=== PATIENT | female | born 1960 ===

== ENCOUNTER 2025-02-12 09:36 | Outpatient (AMB) | payer BC, SELFPAY ==
--- OUTSIDE RECORDS SUMMARY | 2025-02-12 10:14 | XMS_ITS | Clinical Summary ---
Author Organization [facility] Address [address] [place] [address] Phone Care Team Providers Care Medical Doctor Nuclear Medicine Name Role Phone Kal Alston NP Primary Care Provider [phone] Encounters Date Type Department Care Team Description 12/18/2024 7:23 AM EDT - 12/18/2024 11:59 PM EDT [facility] [address] [id number] Encounter for screening mammogram for malignant neoplasm of breast Discharge Disposition: Home or Self Care from Last 3 Months Social History Tobacco Use Types Packs/Day Years Used Date Smoking Tobacco: Never Assessed Comments No Sex and Gender Information Value Date Recorded Sex Assigned at Female 12/21/2024 10:51 AM EDT Legal Sex Female 7:02 PM EST Gender Identity Female 12/21/2024 10:51 AM EDT Sexual Orientation Straight 12/21/2024 10 :51 AM EDT Obstetrics History Last Filed Vital Signs Vital Sign Reading Time Taken Comments Blood Pressure - - Pulse - - Temperature - - Respiratory Rate - - Oxygen Saturation - - Inhaled Oxygen Concentration - - Weight 66.2 kg (146 lb) 12/18/2024 7:31 AM EDT Height 165.1 cm (5' 5 ) 12/18/2024 7:31 AM EDT Body Mass Index 24.3 12/18/2024 7:31 AM EDT Plan of Treatment Health Maintenance Due Date Last Done Comments Cervical Cancer Screening: Pap Smear 1982 Pneumococcal Vaccine: 50+ Years (1 of 1 - PCV) 12/18/2011 Cholesterol Screening (Lipid Panel) 05/21/2022 Colorectal Cancer Screening: Colonoscopy 05/21/2022 HIV Screening 05/21/2022 Hepatitis C Screening 05/21/2022 Social Influencers of Health Screening 05/21/2022 Depression Screening 06/19/2024 Hypertension/CHF/CAD Annual BMP Blood Test 12/19/2024 Influenza Vaccine (#1) 2025 , 03/30/2023, 04/08/2022, Additional history exists Breast Cancer Screening 12/18/2026 12/19/19, 10/16/2023, 10/11/2022, Additional history exists DTaP,Tdap,and Td Vaccines (3 - Td or Tdap) 09/02/2027 09/01/2017, 04/14/2017 Osteoporosis Screening (Bone Density Screening) 10/09/2031 10/08/2021 Zoster Vaccines Completed 11/04/2020, 08/03/2020 RSV Immunization Adult Patients Completed 03/31/2023 COVID-19 Vaccine Completed 04/01/2024, , 01/07/2022, Additional history exists HIB Vaccines Aged Out No longer eligi ble based on patient's age to complete this topic HPV Vaccines Aged Out No longer eligi ble based on patient's age to complete this topic Hepatitis A Vaccines Aged Out No long er eligible based on patient's age to complete this topic Hepatitis B Vaccines Aged Out No long er eligible based on patient's age to complete this topic IPV Vaccines Aged Out No longer eligi ble based on patient's age to complete this topic MMR Vaccines Aged Out No longer eligi ble based on patient's age to complete this topic Meningococcal ACWY Vaccine Aged Out N o longer eligible based on patient's age to complete this topic Meningococcal B Vaccine Aged Out No l onger eligible based on patient's age to complete this topic RSV Immunization Patients Under 20 months Aged Out No longer eligible based on patient's age to complete this topic Varicella Vaccines Aged Out No longer eligible based on patient's age to complete this topic Procedures Procedure Name Priority Date/Time Associated Diagnosis Comments MG MAMMO DIGITAL SCREENING W MISAEL BILAT Routine 12/18/2024 7:43 AM EDT Encounter for screening mammogram for malignant neoplasm of breast RAJI DEXA AXIAL SKELETON Routine 10/08/2021 11:28 AM EDT Encounter for screening for osteoporosis from Last 3 Months or Most Recently Relevant to Health Maintenance Results * MG Mammo Digital Screening w Misael bilat (12/18/2024 7:43 AM EDT) Anatomical Region Laterality Modality Breast Bilateral Mammography 12/18/2024 10:0 3 AM EDT Impressions 12/18/2024 10:19 AM EDT No suspicious change in a focal asymmetry and associated biopsy site marker. No suspicious interval change. Close mammographic surveillance necessary since there was no specific pathologic diagnosis for the suspicious mammogram finding. ASSESSMENT: BI-RADS 2: BENIGN RECOMMENDATION(S): 1: Routine screening mammogram BILATERAL in 1 year. [facility] location[facility] [address], [address] -------- FINAL REPORT -------- Dictated By: Fan Santiago Dictated Date: 12/18/2024 10:03 ET Assigned Physician: Fan Santiago Reviewed and Electronically Signed By: Fan Santiago Signed Date: 12/18/2024 10:19 ET Workstation ID: [id number] Transcribed By: Self Edit Transcribed Date: 12/18/2024 10:03 ET Narrative 12/18/2024 10:19 AM EDT EXAM: SCREENING MAMMOGRAPHY, BILATERAL HISTORY: SCREENING. No additional history. COMPARISON: 10/16/23, 10/11/22, 10/08/21, 10/06/20 TECHNIQUE: Synthesized CC and MLO projections of each breast. Tomosynthesis of each breast in the CC and MLO projections. ADDITIONAL IMAGING: None Computer-aided detection was employed with the iCAD [employer] AI 3-D. TISSUE DENSITY: The breasts are heterogeneously dense, which may obscure small masses. (BI-RADS category C) FINDINGS: RIGHT BREAST: There is an approximately 0.8 cm irregular focal asymmetry within associated biopsy site marker in the 10 o'clock position 7 cm from the nipple. No convincing suspicious interval change. The final pathology result was benign breast tissue. No new suspicious right breast finding LEFT BREAST: No suspicious mass. No suspicious calcification. No distortion. No additional suspicious left breast findings Procedure Note Fan Santiago MD - 12/18/2024 EXAM: SCREENING MAMMOGRAPHY, BILATERAL HISTORY: SCREENING. No additional history. COMPARISON: 10/16/23, 10/11/22, 10/08/21, 10/06/20 TECHNIQUE: Synthesized CC and MLO projections of each breast.Tomosynthesis of each breast in the CC and MLO projections. ADDITIONAL IMAGING: None Computer-aided detection was employed with the iCAD [employer] AI 3-D. TISSUE DENSITY: The breasts are heterogeneously dense, which may obscuresmall masses. (BI-RADS category C) FINDINGS: RIGHT BREAST: There is an approximately 0.8 cm irregular focal asymmetry withinassociated biopsy site marker in the 10 o'clock position 7 cm from thenipple. No convincing suspicious interval change. The final pathologyresult was benign breast tissue. No new suspicious right breast finding LEFT BREAST: No suspicious mass. No suspicious calcification. No distortion. Noadditional suspicious left breast findings IMPRESSION: No suspicious change in a focal asymmetry and associated biopsy sitemarker. No suspicious interval change. Close mammographic surveillance necessary since there was no specificpathologic diagnosis for the suspicious mammogram finding. ASSESSMENT: BI-RADS 2: BENIGN RECOMMENDATION(S): 1: Routine screening mammogram BILATERAL in 1 year. [facility] location[facility] [address], [address] -------- FINAL REPORT -------- Dictated By: Fan Santiago Dictated Date: 12/18/2024 10:03 ET Assigned Physician: Fan Santiago Reviewed and Electronically Signed By: Fan Santiago Signed Date: 12/18/2024 10:19 ET Workstation ID: [id number] Transcribed By: Self Edit Transcribed Date: 12/18/2024 10:03 ET Radha OLMSTEAD IMG BI PROCEDURES Final Result * RAJI DEXA AXIAL SKELETON (10/08/2021 11:28 AM EDT) Anatomical Region Laterality Modality Mammography 10/08/2021 8:14 AM EDT Narrative 10/08/2021 11:28 AM EDT [facility] Diagnostic Imaging Department [address] [place] [address] Patient: KODI RODGERS Paty Farfan./Age/Sex: 1960 - 60 - F Unit#: [id number] Location/Status: SPDIMA/REG CLI [facility] Ordering Physician: LIV GO CNM Raji Dexa Axial Skeleton - 10/08/21904 HISTORY: The patient is a 60-year-old postmenopausal female with clinical concern for metabolic bone disease. FINDINGS: Dual energy x-ray absorptiometry of the lumbar spine and femurs is performed. The mean bone mineral density at L1-3 is 0.852 gm/cm2 which is 73% of that of young normals and 84% of that of age matched controls. This yields a T- score of -2.6 and a Z-score of -1.3 which is diagnostic of osteoporosis. The mean bone mineral density of the femurs bilaterally is 0.819 gm/cm2 which is 81% of that of young normals and 93% of that of age matched controls. This yields a T-score of -1.5 and a Z-score of -0.5 which is diagnostic of osteopenia. IMPRESSION: 1. Osteoporosis. 2. FRAX analysis yields a 10-year probability of major osteoporotic fracture of 8.4% and a 10-year probability of hip fracture of 1.0%. Code 82327 Dictating Physician: QUINCY SIDHU MD Electronically Signed by: QUINCY SIDHU MD Dic Date/Time: 10/08/21 1127 Sign date/Time: 10/08/21 1128 Procedure Note Quincy Sidhu MD - 06/08/2022 [facility] Diagnostic Imaging Department [address] [place] [address] Patient: KODI RODGERS Paty Farfan./Age/Sex: 1960 - 60 - F Unit#: [id number] [facility] Mnemonic/Ordering Site: [facility] Ordering Physician: LIV GO CNM [facility] Dexa Axial Skeleton - 10/08/21 - 09 HISTORY: The patient is a 60-year-old postmenopausal female withclinical concern for metabolic bone disease. FINDINGS: Dual energy x-ray absorptiometry of the lumbar spine and femursis performed. The mean bone mineral density at L1-3 is 0.852 gm/cm2 which is73% of that of young normals and 84% of that of age matched controls. This yieldsa T- score of -2.6 and a Z-score of -1.3 which is diagnostic of osteoporosis. The mean bone mineral density of the femurs bilaterally is 0.819 gm/sk7gojyp is 81% of that of young normals and 93% of that of age matched controls.This yields a T-score of -1.5 and a Z-score of -0.5 which is diagnostic of osteopenia. IMPRESSION: 1. Osteoporosis. 2. FRAX analysis yields a 10-year probability of major osteoporoticfracture of 8.4% and a 10-year probability of hip fracture of 1.0%. Code 25174 Dictating Physician: QUINCY SIDHU MD Electronically Signed by: QUINCY SIDHU MD Dic Date/Time: 10/08/21 1127 Sign date/Time: 10/08/21 1128 Liv Go [facility] IM BI PROCEDURES Final Result from Last 3 Months or Most Recently Relevant to Health Maintenance Insurance [facility] Care Teams Medical Doctor Nuclear Medicine Relationship Specialty Start Date End Date Kal Alston NP [facility] [place] [facility] [place] PCP - General Nurse Practitioner 12/10/24
--- OUTSIDE RECORDS SUMMARY | 2025-02-12 10:14 | XMS_ITS | Patient Health Record ---
[facility] David porras [place] Address [address] [place] [address] Care Team Providers Care Laundry Helper Name Role Phone KirillKal andrews Primary Care Provider Unavailbravo e Vinnie Carlin Unavailable [phone] Allergies Allergen (clinical drug ingredient) Drug/Non Drug Allergy documented on EMR Reaction Allergy Type Onset Date Status Dust Mites Unknown Allergy Active Mold Unknown Allergy Active Reason For Referral Diagnosis 1 Metatarsalgia (726.7 0) Diagnosis 2 Bursitis (727.3) Diagnosis 3 Plantarflexed Metata rsal (838.04) Diagnosis 4 Pain in unspecified foot (M79.673) Referring Provider First Name Jovi Referring Provider Last Name [place] [facility] Referred Provider Vinnie Carlin Referred Address [address] [facility],[place],[address], Referred Provider Specialty Podiatry Referral Priority Routine Medications Medication SIG (Take, Route, Frequency, Duration) Notes Start Date End Date Status Reclast 5 MG/100ML as directed Intravenous Not-Taking Ibuprofen 600 MG 1 tablet with food o r milk as needed Orally Three times a day Not-Taking Fluticasone Propionate 50 MCG/ACT Nasal; Duration: 30 Active Diclofenac Sodium 75 MG TAKE 1 TABLET BY MOUTH TWICE DAILY WITH FOOD; Duration: 30 Active Losartan Potassium 25 MG 1 tablet Orally Once a day Active Womens 50+ Advanced Orally 10/25/2013 Active PreviDent 5000 Booster Plus 1.1 % Dental; Duration: 20 Active Mometasone Furoate 1 application to affected area Externally Once a day; Duration: as needed Unknown D3-1000 1000 UNIT 1 capsule Orally Onc e a day 10/25/2013 Not-Taking Omeprazole 20 MG 1 capsule Orally Onc e a day 10/25/2013 Active Levothyroxine Sodium 88 MCG Oral; Duration: 30 Active Social History Tobacco Use: Social History Observation Description Date Details (start date - stop date) Never Smoker NA - NA Tobacco Control (Standard) Question Answer Notes Tobacco use: Nonsmoker Additional Findings: Tobacco non-user Ex-cigaret te smoker AUDIT-C (Standard) Question Answer Notes Did you have a drink contain ing alcohol in the past year? Yes How often did you have a dri nk containing alcohol in the past year? 2 to 4 times a month (2 points) How many drinks did you have on a typical day when you were drinking in the past year? 1 or 2 drinks (0 point) How often did you have six o r more drinks on one occasion in the past year? Never (0 point) Points 2 Interpretation Negative Vital Signs Blood pressure diastolic 76 mm Hg 07/18/2024 Height 5ft 5 in in 07/18/2024 Blood pressure systolic 138 mm Hg 07/18/2024 Weight 140 lbs 07/18/2024 BMI 23.29 kg/m2 07/18/2024 Procedures Procedure Date Ordered Date Performed Result Body Sit e , E9687-DWRII/INJECT, JOINT/BURSA 07/18/2024 N/A Encounters Encounter Location Date Provider Diagnosis [address] [address] 06/20/2024 Vinnie Carlin Pain in left foot M7 9.672 and Bursitis of intermetatarsal bursa of left foot M77.[address] [place] [facility] [address] 07/18/2024 Vinnie Carlin Pain in left foot M7 9.672 and Bursitis of intermetatarsal bursa of left foot M77.52 Assessments Encounter Date Diagnosis (ICD Code) Assessment Notes Treatment Notes Treatment Clinical Notes Section Notes 06/20/2024 Pain in left foot (ICD-10 - M79.672) 06/20/2024 Bursitis of intermetatarsal bursa of left foot (ICD-10 - M77.52) 07/18/2024 Pain in left foot (ICD-10 - M79.672) 07/18/2024 Bursitis of intermetatarsal bursa of left foot (ICD-10 - M77.52) Plan Of Treatment Pending Test Test Name Order Date X ray : Foot, left 3V 06/20/2024, G2966-KUSEV/INJECT, JOINT/BURSA 0 07/18/2024, Q5655-GCOLT/INJECT, JOINT/BURSA 0 02/20/2014, F3902-JTPXM/INJECT, JOINT/BURSA 0 03/17/2014 Insurance Providers Payer Name Payer Address Payer Phone Subscriber Number Group Number Insured Name Patient Relationship to Insured Coverage Start Date Coverage End Date [facility] [address] [place] [address] [id number] 4 Yuli Rodgers Self - patient is the insured [facility] [address] [place] [address] [id number] 4 Yuli Rodgers Self - patient is the insured Medical (General) History Medical History History ICD Code Back,Hip,and Knee pain basal cell carcinoma Cataracts Headaches/Migraines Reflux Sciatica chronic sinusitis Thyroid disorder Mumps Arthritis Cancer covid-19 Diverticulitis High Blood Pressure Osteoporosis Psoriasis/eczema Reflux ( GERD)
== END 2025-02-12 09:43 | disposition home or self-care (01) ==
LOC: HO.HMGAL 09:36
PROVIDERS: PCP Internal Medicine; Visit Provider Registered Nurse Emergency
DX: J30.89 Other allergic rhinitis (principal)
CPT/HCPCS: 95117; 95165

== ENCOUNTER 2025-03-12 13:30 | Outpatient (AMB) | payer BC, SELFPAY ==
--- OUTSIDE RECORDS SUMMARY | 2025-03-12 15:57 | XMS_ITS | Patient Health Record ---
Author Organization [facility] David porras [place] Address [address] [place] [address] Care Team Providers Care Sports Medicine Specialist Name Role Phone KirillKal andrews Primary Care Provider Unavailbravo e Vinnie Carlin Unavailable [phone] Allergies Allergen (clinical drug ingredient) Drug/Non Drug Allergy documented on EMR Reaction Allergy Type Onset Date Status Dust Mites Unknown Allergy Active Mold Unknown Allergy Active Reason For Referral Diagnosis 1 Metatarsalgia (726.7 0) Diagnosis 2 Bursitis (727.3) Diagnosis 3 Plantarflexed Metata rsal (838.04) Diagnosis 4 Pain in unspecified foot (M79.673) Referring Provider First Name Jovi Referring Provider Last Name [place] [facility] Miah Referred Provider Vinnie Carlin Referred Address [address] [facility],[place],[address], Referred Provider Specialty Podiatry Referral Priority Routine [...] Date Performed Result Body Sit e , V2933-PGFTN/INJECT, JOINT/BURSA 07/18/2024 N/A Encounters Encounter Location Date Provider Diagnosis [address] [address] 06/20/2024 Vinnie Carlin Pain in left foot M7 9.672 and Bursitis of intermetatarsal bursa of left foot M77.52 [place] [facility] [address] 07/18/2024 Vinnie Carlin Pain in left foot [...] X ray : Foot, left 3V 06/20/2024, R8500-VAHEW/INJECT, JOINT/BURSA 0 07/18/2024, Z4143-IXVWF/INJECT, JOINT/BURSA 0 02/20/2014, S9327-NLLMS/INJECT, JOINT/BURSA 0 03/17/2014 Insurance Providers Payer Name Payer Address Payer Phone Subscriber Number Group Number Insured Name Patient Relationship to Insured Coverage Start Date Coverage End Date [facility] [address] [place] [address] [phone] [id number] 4 Yuli Rodgers Self - patient is the insured [facility] [address] [place] [address] [phone] [id number] 4 Yuli Rodgers Self - patient is the insured Medical (General) History Medical History History ICD Code Back,Hip,and Knee pain basal cell carcinoma Cataracts Headaches/Migraines Reflux Sciatica chronic sinusitis Thyroid disorder Mumps Arthritis Cancer covid-19 Diverticulitis High Blood Pressure Osteoporosis Psoriasis/eczema Reflux ( GERD)
== END 2025-03-12 13:31 | disposition home or self-care (01) ==
LOC: HO.HMGAL 13:30
PROVIDERS: PCP Internal Medicine; Visit Provider Registered Nurse Emergency
DX: J30.89 Other allergic rhinitis (principal)
CPT/HCPCS: 95117; 95165

== ENCOUNTER 2025-04-09 15:17 | Outpatient (AMB) | payer BC, SELFPAY ==
--- OUTSIDE RECORDS SUMMARY | 2025-04-09 21:30 | XMS_ITS | Clinical Summary ---
Author Organization [facility] Address [address] [place] [address] Phone Care Team Providers Care Steam Oven Operator Name Role Phone Kal Alston NP Primary Care Provider [phone] Social History Tobacco Use Types Packs/Day Years [...] Health Maintenance Due Date Last Done Comments Colorectal Cancer Screening: Colonoscopy 1960 Cervical Cancer Screening: Pap Smear 1982 Pneumococcal Vaccine: 50+ Years (1 of 1 - PCV) 12/18/2011 Cholesterol Screening (Lipid Panel) 05/21/2022 HIV Screening 05/21/2022 Hepatitis C Screening [...] screening mammogram for malignant neoplasm of breast [facility] DEXA AXIAL SKELETON Routine 10/08/2021 11:28 AM [...] year. [facility] [address], [address] -------- FINAL REPORT -------- Dictated By: Fan Santiago Dictated Date: 12/18/2024 10:03 ET Assigned Physician: Fan Santiago Reviewed and Electronically Signed By: Fan Santiago Signed Date: 12/18/2024 10:19 ET Workstation ID: [id number] Transcribed By: Self Edit Transcribed Date: 12/18/2024 10:03 ET Narrative 12/18/2024 10:19 AM EDT EXAM: SCREENING MAMMOGRAPHY, BILATERAL HISTORY: SCREENING. No additional history. COMPARISON: 10/16/23, 10/11/22, 10/08/21, 10/06/20 TECHNIQUE: Synthesized CC and MLO projections of each breast. Tomosynthesis of each breast in the CC and MLO projections. ADDITIONAL IMAGING: None Computer-aided detection was employed with the iCAD [employer] AI 3-D. TISSUE DENSITY: The breasts are [...] Computer-aided detection was employed with the [employer] AI 3-D. TISSUE DENSITY: The breasts are [...] year. [facility]amm[facility] [address] [place], [address] -------- FINAL REPORT -------- Dictated By: Fan Santiago Dictated Date: 12/18/2024 10:03 ET Assigned Physician: Fan Santiago Reviewed and Electronically Signed By: Fan Santiago Signed Date: 12/18/2024 10:19 ET Workstation ID: [id number] Transcribed By: Self Edit Transcribed Date: 12/18/2024 10:03 ET us Radha OLMSTEAD IMG BI PROCEDURES Final Result * RAJI DEXA AXIAL SKELETON (10/08/2021 11:28 AM EDT) Anatomical Region Laterality Modality Mammography 10/08/2021 8:14 AM EDT Narrative 10/08/2021 11:28 AM EDT [facility] Diagnostic Imaging Department [address] [place] [address] Patient: KODI RODGERS /Age/Sex: 1960 - 60 - F Unit#: [id number] Location/Status: SPDIMAM/REG CLI Mnemonic/Ordering Site: [facility] Ordering Physician: LIV GO CNM Raji Dexa Axial Skeleton - 10/08/21 - 904 HISTORY: The patient is a 60-year-old postmenopausal [...] probability of hip fracture of 1.0%. Code 30969 Dictating Physician: QUINCY SIDHU MD Electronically Signed by: QUINCY SIDHU MD Dic Date/Time: 10/08/211126 Sign date/Time: 10/08/211127 Procedure Note Quincy Sidhu MD - 06/08/2022 [facility] Diagnostic Imaging Department [address] [place] [address] Patient: KODI RODGERS Paty GodfreyB./Age/Sex: 1960 - 60 - F Unit#: [id number] Location/Status: SPDIMAM/REG CLI Mnemonic/Ordering Site: [facility] Ordering Physician: LIV GO CNM Raji Dexa [...] density of the femurs bilaterally is 0.819 gm/yf6mpodn is 81% of that of young normals and 93% of that of age matched controls.This yields a T-score of -1.5 and a Z-score of -0.5 which is diagnostic of osteopenia. IMPRESSION: 1. Osteoporosis. 2. FRAX analysis yields a 10-year probability of major osteoporoticfracture of 8.4% and a 10-year probability of hip fracture of 1.0%. Code 09247 Dictating Physician: QUINCY SIDHU MD Electronically Signed by: QUINCY SIDHU MD Dic Date/Time: 10/08/21 1127 Sign date/Time: 10/08/21 1128 Liv Go CNM IMG BI PROCEDURES Final Result from Last 3 Months or Most Recently Relevant to Health Maintenance Insurance [facility] Care Teams Steam Oven Operator Relationship Specialty Start Date End Date Kal Alston NP [address], [place] PCP - General Nurse Practitioner 12/10/24
--- OUTSIDE RECORDS SUMMARY | 2025-04-09 21:31 | XMS_ITS | Patient Health Record ---
Author Organization [facility] porras [place] Address [address] [place] [address] Care Team Providers Care Rag Grader Name Role Phone KirillKal andrews Primary Care Provider Unavailbravo e Vinnie Carlin Unavailable [phone] Allergies Allergen (clinical drug ingredient) Drug/Non Drug Allergy documented on EMR Reaction Allergy Type Onset Date Status Dust Mites Unknown Allergy Active Mold Unknown Allergy Active Reason For Referral Diagnosis 1 Metatarsalgia (726.7 0) Diagnosis 2 Bursitis (727.3) Diagnosis 3 Plantarflexed Metata rsal (838.04) Diagnosis 4 Pain in unspecified foot (M79.673) Referring Provider First Name Jovi Referring Provider Last Name [place] [facility]iah Referred Provider Vinnie Carlin Referred Address [address] [facility],[place], [place],[address], Referred Provider Specialty Podiatry Referral Priority Routine [...] Date Performed Result Body Sit e , S6147-DZJDX/INJECT, JOINT/BURSA 07/18/2024 N/A Encounters Encounter Location Date Provider Diagnosis [address] [address] 06/20/2024 Vinnie Carlin Pain in left foot M7 9.672 and Bursitis of intermetatarsal bursa of left foot M77.[address] [place] [facility] [address] 07/18/2024 Vinnie Carlin Pain in left foot [...] X ray : Foot, left 3V 06/20/2024, L2811-CIJNZ/INJECT, JOINT/BURSA 0 07/18/2024, H2903-PORRK/INJECT, JOINT/BURSA 0 02/20/2014, G4695-YYBFW/INJECT, JOINT/BURSA 0 03/17/2014 Insurance Providers Payer Name Payer Address Payer Phone Subscriber Number Group Number Insured Name Patient Relationship to Insured Coverage Start Date Coverage End Date [facility] [address] [place] [address] [id number] 4 Yuli Rodgers Self - patient is the insured [facility] [address] [place] [address] [phone] [id number] 4 Yuli Rodgers Self - patient is the insured Medical (General) History Medical History History ICD Code Back,Hip,and Knee pain basal cell carcinoma Cataracts Headaches/Migraines Reflux Sciatica chronic sinusitis Thyroid disorder Mumps Arthritis Cancer covid-19 Diverticulitis High Blood Pressure Osteoporosis Psoriasis/eczema Reflux ( GERD)
== END 2025-04-09 15:17 | disposition home or self-care (01) ==
LOC: HO.HMGAL 15:17
PROVIDERS: PCP Nurse Practitioner Family; Visit Provider Registered Nurse Emergency
DX: J30.89 Other allergic rhinitis (principal)
CPT/HCPCS: 95117; 95165

== ENCOUNTER 2025-05-07 15:13 | Outpatient (AMB) | payer BC, SELFPAY ==
--- OUTSIDE RECORDS SUMMARY | 2025-05-08 03:47 | XMS_ITS | Patient Health Record ---
[facility] David porras [place] Address [address] [place] [address] Care Team Providers Care Hearing Specialist Name Role Phone KirillKal andrews Primary Care Provider Unavailbravo e Vinnie Carlin Unavailable [phone] Allergies Allergen (clinical drug ingredient) Drug/Non Drug Allergy documented on EMR Reaction Allergy Type Onset Date Status Dust Mites Unknown Allergy Active Mold Unknown Allergy Active Reason For Referral Diagnosis 1 Metatarsalgia (726.7 0) Diagnosis 2 Bursitis (727.3) Diagnosis 3 Plantarflexed Metata rsal (838.04) Diagnosis 4 Pain in unspecified foot (M79.673) Referring Provider First Name Jovi Referring Provider Last Name [place] [facility] Referred Provider Vinnie Carlin Referred Address [address] [facility],[place],[address], Referred Provider Specialty Podiatry Referral Priority Routine [...] Date Performed Result Body Sit e , Q0637-APQFB/INJECT, JOINT/BURSA 07/18/2024 N/A Encounters Encounter Location Date Provider Diagnosis [address] [address] 06/20/2024 Vinnie Carlin Pain in left foot M7 9.672 and Bursitis of intermetatarsal bursa of left foot M77.[address] [facility] [address] 07/18/2024 Vinnie Carlin Pain in left foot [...] X ray : Foot, left 3V 06/20/2024, D0696-SSRIW/INJECT, JOINT/BURSA 0 07/18/2024, [id number]/INJECT, JOINT/BURSA 0 02/20/2014, [id number]/INJECT, JOINT/BURSA 0 03/17/2014 Insurance Providers Payer Name Payer Address Payer Phone Subscriber Number Group Number Insured Name Patient Relationship to Insured Coverage Start Date Coverage End Date [facility] [address] [place] [address] [phone] [id number] 4 Yuli Rodgers Self - patient is the insured [facility] [address] [place] [address] [id number] 4 Yuli Rodgers Self - patient is the insured Medical (General) History Medical History History ICD Code Back,Hip,and Knee pain basal cell carcinoma Cataracts Headaches/Migraines Reflux Sciatica chronic sinusitis Thyroid disorder Mumps Arthritis Cancer covid-19 Diverticulitis High Blood Pressure Osteoporosis Psoriasis/eczema Reflux ( GERD)
== END 2025-05-07 15:13 | disposition home or self-care (01) ==
LOC: HO.HMGAL 15:13
PROVIDERS: PCP Nurse Practitioner Family; Visit Provider Registered Nurse Emergency
DX: J30.89 Other allergic rhinitis (principal)
CPT/HCPCS: 95117; 95165

== ENCOUNTER 2025-06-04 13:28 | Outpatient (AMB) | payer BC, SELFPAY ==
--- OUTSIDE RECORDS SUMMARY | 2025-06-04 17:37 | XMS_ITS | Clinical Summary ---
Author Organization [facility] Address [address] [place] [address] Phone Care Team Providers Care Print Production Coordinator Name Role Phone Kal Alston NP Primary Care Provider [phone] Social History Tobacco Use Types Packs/Day Years Used Date Smoking Tobacco: Never Assessed Comments No Sex and Gender Information Value Date Recorded Sex Assigned at Female 12/21/2024 10:51 AM EDT Legal Sex Female 7:02 PM EST Gender Identity Female 12/21/2024 10:51 AM EDT Sexual Orientation Straight 12/21/2024 10 :51 AM EDT Last Filed Vital Signs Vital Sign Reading [...] 06/19/2024 Hypertension/CHF/CAD Annual BMP Blood Test 12/19/2024 COVID-19 Vaccine ( season) 2025 04/01/2024, 03/31/2023, 01/07/2022, Additional history exists Influenza Vaccine (#1) 2025 , 03/30/2023, 04/08/2022, Additional history exists Breast Cancer Screening 12/18/2026 12/19/19, 10/16/2023, 10/11/2022, Additional history exists DTaP,Tdap,and Td Vaccines (3 - Td or Tdap) 09/02/2027 09/01/2017, 04/14/2017 Osteoporosis Screening (Bone Density Screening) 10/09/2031 10/08/2021 Zoster Vaccines Completed 11/04/2020, 08/03/2020 RSV Immunization Adult Patients Completed 03/31/2023 HIB Vaccines Aged Out No longer eligi [...] year. [facility] [address], [address] -------- FINAL REPORT -------- Dictated By: Fan Santiago Dictated Date: 12/18/2024 10:03 ET Assigned Physician: Fan Santiago Reviewed and Electronically Signed By: Fan Santiago Signed Date: 12/18/2024 10:19 ET Workstation ID: [id number] Transcribed By: Self Edit Transcribed Date: 12/18/2024 10:03 ET Narrative 12/18/2024 10:19 AM EDT EXAM: SCREENING MAMMOGRAPHY, BILATERAL HISTORY: SCREENING. No additional history. COMPARISON: 10/16/23, 10/11/22, 10/08/21, 10/06/20 TECHNIQUE: Synthesized CC and MLO projections of each breast. Tomosynthesis of each breast in the CC and MLO projections. ADDITIONAL IMAGING: None Computer-aided detection was employed with the [employer] AI 3-D. TISSUE DENSITY: The breasts are [...] Computer-aided detection was employed with the [employer] AI 3-D. TISSUE DENSITY: The breasts are [...] year. [facility]amm[facility] location: [facility] [address] [place], [address] -------- FINAL REPORT -------- Dictated By: Fan Santiago Dictated Date: 12/18/2024 10:03 ET Assigned Physician: Fan Santiago Reviewed and Electronically Signed By: Fan Santiago Signed Date: 12/18/2024 10:19 ET Workstation ID: [id number] Transcribed By: Self Edit Transcribed Date: 12/18/2024 10:03 ET us Radha OLMSTEAD IMG BI PROCEDURES Final Result * RAJI DEXA AXIAL SKELETON (10/08/2021 11:28 AM EDT) Anatomical Region Laterality Modality Mammography 10/08/2021 8:14 AM EDT Narrative 10/08/2021 11:28 AM EDT [facility] Diagnostic Imaging Department [address] [place] [address] Patient: KODI RODGERS /Age/Sex: 1960 - 60 - F Unit#: [id number] Location/Status: SPDIMAM/REG CLI Mnemonic/Ordering Site: MAMDEXAAX/SPMAM Ordering [...] probability of hip fracture of 1.0%. Code 13107 Dictating Physician: QUINCY SIDHU MD Electronically Signed by: QUINCY SIDHU MD Dic Date/Time: 10/08/21 1127 Sign date/Time: 10/08/21 1128 Procedure Note Quincy Sidhu MD - 06/08/2022 [facility] Diagnostic Imaging Department [address] [place] [address] Patient: KODI RODGERS Paty Farfan./Age/Sex: 1960 - 60 - F Unit#: [id number] Location/Status: SPDIMAM/REG CLI Mnemonic[facility] Ordering Physician: LIV GO CNM Raji [...] density of the femurs bilaterally is 0.819 gm/nk9wpdkr is 81% of that of young normals and 93% of that of age matched controls.This yields a T-score of -1.5 and a Z-score of -0.5 which is diagnostic of osteopenia. IMPRESSION: 1. Osteoporosis. 2. FRAX analysis yields a 10-year probability of major osteoporoticfracture of 8.4% and a 10-year probability of hip fracture of 1.0%. Code 80109 Dictating Physician: QUINCY SIDHU MD Electronically Signed by: QUINCY SIDHU MD Dic Date/Time: 10/08/21 1127 Sign date/Time: 10/08/21 1128 Liv Go CNM IMG BI PROCEDURES Final Result from Last 3 Months or Most Recently Relevant to Health Maintenance Insurance [facility] Care Teams Print Production Coordinator Relationship Specialty Start Date End Date Kal Alston NP [address] [place] [address] PCP - General Nurse Practitioner 12/10/24
--- OUTSIDE RECORDS SUMMARY | 2025-06-04 17:37 | XMS_ITS | Patient Health Record ---
[facility] David porras [place] Address [address] [place] [address] Care Team Providers Care Production Floater Name Role Phone KirillKal andrews Primary Care Provider Unavailbravo e Vinnie Carlin Unavailable [phone] Allergies Allergen (clinical drug ingredient) Drug/Non Drug Allergy documented on EMR Reaction Allergy Type Onset Date Status Dust Mites Unknown Allergy Active Mold Unknown Allergy Active Reason For Referral Diagnosis 1 Metatarsalgia (726.7 0) Diagnosis 2 Bursitis (727.3) Diagnosis 3 Plantarflexed Metata rsal (838.04) Diagnosis 4 Pain in unspecified foot (M79.673) Referring Provider First Name Jovi Referring Provider Last Name [place] [facility] Referred Provider Vinnie Carlin Referred Address [address] [facility],[place],[address], Referred Provider Specialty Podiatry Referral Priority Routine [...] Date Performed Result Body Sit e , C6955-OHCMN/INJECT, JOINT/BURSA 07/18/2024 N/A Encounters Encounter Location Date Provider Diagnosis [address] [address] 06/20/2024 Vinnie Carlin Pain in left foot M7 9.672 and Bursitis of intermetatarsal bursa of left foot M77.[address] [facility] [address] 07/18/2024 Vinnie Carlin Pain in left foot [...] X ray : Foot, left 3V 06/20/2024, H3174-BCBSM/INJECT, JOINT/BURSA 0 07/18/2024, J1973-[id number]/INJECT, JOINT/BURSA 0 02/20/2014, A2314-ZQAMF/INJECT, JOINT/BURSA 0 03/17/2014 Insurance Providers Payer Name Payer Address Payer Phone Subscriber Number Group Number Insured Name Patient Relationship to Insured Coverage Start Date Coverage End Date [facility] [address] [place] [address] [phone] [id number] 4 Yuli Rodgers Self - patient is the insured [employer] [facility] [address] [place] [address] [phone] [id number] 4 Yuli Rodgers Self - patient is the insured Medical (General) History Medical History History ICD Code Back,Hip,and Knee pain basal cell carcinoma Cataracts Headaches/Migraines Reflux Sciatica chronic sinusitis Thyroid disorder Mumps Arthritis Cancer covid-19 Diverticulitis High Blood Pressure Osteoporosis Psoriasis/eczema Reflux ( GERD)
== END 2025-06-04 13:28 | disposition home or self-care (01) ==
LOC: HO.HMGAL 13:28
PROVIDERS: PCP Nurse Practitioner Family; Visit Provider Registered Nurse Emergency
DX: J30.89 Other allergic rhinitis (principal)
CPT/HCPCS: 95117; 95165